=== PATIENT | female | born 1995 | race Caucasian/White ===

== ENCOUNTER 2022-05-15 13:59 | Outpatient (CLI) | payer MEDICAID, SELFPAY ==
[2022-05-15 23:39] LABS: Chlamydia DNA Amplified* NOT DETECTED (No Detected); GC DNA Amplified* NOT DETECTED (No Detected)
== END 2022-05-15 14:00 | disposition home or self-care (01) ==
LOC: LKVREF 14:00
PROVIDERS: PCP Physician Assistant Medical; Visit Provider Physician Assistant Medical
DX: N76.0 Acute vaginitis (principal); R21 Rash and other nonspecific skin eruption; R30.0 Dysuria
CPT/HCPCS: 87491; 87591

== ENCOUNTER 2022-10-26 09:11 | Outpatient (CLI) | payer MEDICAID, SELFPAY ==
[2022-10-26 19:56] LABS: Chlamydia DNA Amplified* NOT DETECTED (No Detected); GC DNA Amplified* NOT DETECTED (No Detected)
== END 2022-10-26 09:12 | disposition home or self-care (01) ==
PROVIDERS: PCP Physician Assistant Medical; Visit Provider Physician Assistant Medical
DX: Z00.00 Encounter for general adult medical examination without abnormal findings (principal); N76.0 Acute vaginitis; Z11.3 Encounter for screening for infections with a predominantly sexual mode of transmission
CPT/HCPCS: 87491; 87591

== ENCOUNTER 2024-01-31 11:23 | Outpatient (CLI) | payer MEDICAID, SELFPAY | END 2024-01-31 11:24 | disposition home or self-care (01) | PROVIDERS: PCP Physician Assistant Medical; Visit Provider Physician Assistant Medical | DX: R53.83 Other fatigue (principal); F41.9 Anxiety disorder, unspecified; F32.A Depression, unspecified | CPT/HCPCS: 80053; 82306; 82728; 84439; 84443 ==

== ENCOUNTER 2024-05-22 10:14 | Outpatient (CLI) | payer MEDICAID, SELFPAY | END 2024-05-22 10:15 | disposition home or self-care (01) | LOC: NFLDREF 05-28 01:06 | PROVIDERS: PCP Physician Assistant Medical; Referring Provider Physician Assistant Medical; Visit Provider Physician Assistant Medical | DX: R31.9 Hematuria, unspecified (principal) | CPT/HCPCS: 83540; 83550; 84443; 87086 ==

== ENCOUNTER 2025-03-09 15:26 | Outpatient (CLI) | payer MEDICAID, SELFPAY | END 2025-03-09 15:27 | disposition home or self-care (01) | LOC: NFLDREF 03-13 09:26 | PROVIDERS: PCP Physician Assistant Medical; Referring Provider Physician Assistant Medical; Visit Provider Physician Assistant Medical | DX: Z00.00 Encounter for general adult medical examination without abnormal findings (principal) | CPT/HCPCS: 80053; 80061; 82306; 84443 ==